=== PATIENT | female | born 1970 | race Caucasian/White ===

== ENCOUNTER 2018-08-24 06:54 | Day surgery (SDC) | payer OTHER ==
[~2018-08-24 06:54] MED LIST: CEFAZOLIN 2 GM/50 ML (PMX) 50 ML IVPB
[2018-08-24 07:52] LABS: ADD MAN DIFF? NO
[2018-08-24 08:02] LABS: WHITE BLOOD COUNT 8.1 10^3/ul (4.8-10.8)
[2018-08-24 08:02] LABS: BASOPHILS % 0.5 % (0.0-2.0); EOSINOPHILS # 0.3 10^3/ul (0.0-0.5); EOSINOPHILS % 3.5 % (0.0-7.0); HEMOGLOBIN 12.7 g/dl (12.0-16.0); LYMPHOCYTES # 3.7 10^3/ul (0.8-2.9); LYMPHOCYTES % 45.8 % (15.0-51.0); MEAN CORPUSCULAR HEMOGLOBIN 31.2 pg (29.0-33.0); MEAN CORPUSCULAR HGB CONC 32.6 g/dl (32.0-37.0); MEAN CORPUSCULAR VOLUME 95.8 fl (82.0-101.0); MEAN PLATELET VOLUME 12.2 fl (7.4-10.4); NEUTROPHIL # 3.1 10^3/ul (1.6-7.5); NEUTROPHILS % 37.8 % (39.0-77.0); PLATELET COUNT 231 10^3/UL (140-415); RED BLOOD COUNT 4.07 10^6/ul (4.20-5.40); RED CELL DISTRIBUTION WIDTH 14.1 % (11.5-14.5)
[2018-08-24 08:06] LABS: POSITIVE DIFF @See below
[2018-08-24 08:15] LABS: ALANINE AMINOTRANSFERASE 21 IU/L (13-69); ALBUMIN 4.2 g/dl (3.3-4.9); ALBUMIN/GLOBULIN RATIO 1.13; ALKALINE PHOSPHATASE 42 IU/L (42-121); ANION GAP 8 (5-13); ASPARTATE AMINO TRANSFERASE 22 IU/L (15-46); BILIRUBIN,INDIRECT 0.8 mg/dl (0-1.1); BILIRUBIN,TOTAL 0.8 mg/dl (0.2-1.3); BLOOD UREA NITROGEN 16 mg/dl (7-20); CALCIUM 8.9 mg/dl (8.4-10.2); CARBON DIOXIDE 24 mmol/L (21-31); CHLORIDE 110 mmol/L (97-110); Estimated GFR > 60 mL/min (>60); GLUCOSE 104 mg/dl (70-220); INR 0.85; POTASSIUM 4.5 mmol/L (3.5-5.1); PROTIME 11.7 Sec (11.9-14.9); PT RATIO 0.9; SODIUM 142 mmol/L (135-144); TOTAL PROTEIN 7.9 g/dl (6.1-8.1)
[2018-08-24 08:16] LABS: PARTIAL THROMBOPLASTIN TIME 30.9 Sec (23.0-35.0)
[2018-08-24] MEDS ORDERED: BUPIVACAINE 0.5% (SDV) 30 ML INJ (09:39)
[2018-08-24] MEDS ORDERED: LIDOCAINE 2% (MDV) 20 ML INJ (09:39)
[2018-08-24] MEDS ORDERED: MIDAZOLAM 1 MG/ML 2 ML INJ (09:53)
[2018-08-24] MEDS ORDERED: PROPOFOL 20 ML (09:53)
[2018-08-24] MEDS ORDERED: FENTAnyl 50 MCG/ML VIAL (09:53)
[2018-08-24] MEDS ORDERED: LIDOCAINE 2% (SDV) 5 ML INJ (09:53)
[2018-08-24] MEDS ORDERED: DIPHENHYDRAMINE 50 MG INJ IV (10:00)
[2018-08-24] MEDS ORDERED: FENTAnyl 50 MCG/ML VIAL IV (10:00)
[2018-08-24] MEDS ORDERED: MEPERIDINE 25 MG INJ IV (10:00)
[2018-08-24] MEDS ORDERED: ONDANSETRON 4 MG INJ IV (10:00)
[2018-08-24] MEDS ORDERED: DEXAMETHASONE 4 MG/ML 1 ML INJ (10:16)
[2018-08-24] MEDS ORDERED: METOCLOPRAMIDE 10 MG INJ (10:16)
[2018-08-24] MEDS ORDERED: ONDANSETRON 4 MG INJ (10:16)
[2018-08-24] MEDS ORDERED: CEFAZOLIN 1 GM INJ (10:16)
[2018-08-24] MEDS: BUPIVACAINE 0.25% (MPF) 30 ML INJ (10:33)
[2018-08-24] MEDS ORDERED: HYDROmorphONE 2 MG/ML SYG (10:36)
[2018-08-24] MEDS ORDERED: HYDROCODONE/APAP (5/325) TAB PO (11:00)
[2018-08-24] MEDS: SOD CHLORIDE 0.9% 1,000 ML IV (11:08)
[2018-08-24] MEDS: HYDROmorphONE 1 MG/5 ML IV SYRINGE IV ×2 (11:32→11:42)
[2018-08-24] MEDS: OXYCODONE/ACETAMINOPHEN (5/325) TAB PO (11:52)
== END 2018-08-24 13:50 | disposition home or self-care (01) ==
LOC: SDS 06:54
DX: D17.79 Benign lipomatous neoplasm of other sites (principal)
CPT/HCPCS: 22901; 80053; 85025; 85610; 85730; 88307